=== PATIENT | male | born 1995 | race Asian ===

== ENCOUNTER 2021-09-10 10:03 | Emergency (ER) | payer OTHER ==
--- NOTE | 2021-09-10 10:17 | ED Physician Documentation ---
PD HPI NVD - Stated complaint Stated Complaint: ABD PX - Chief complaint Chief Complaint: Abd Pain - History obtained from History obtained from: Patient - History of Present Illness Timing - onset: How many hours ago (1-2), Today Timing - duration: Hours Timing - details: Abrupt onset, Still present (Abrupt onset this morning of nausea and vomiting with a watery loose stool after eating breakfast this morning. [place] okay last night. No unusual foods.) Associated symptoms: Abdominal pain, Loss of appetite. No: Fever, Near syncope / syncope Contributing factors: No: Sick contact, Bad food, Recent antibiotics, Alcohol use (not recent) Improved by: No: Vomiting Worsened by: Eating Similar symptoms before: Has not had sx before Recently seen: Not recently seen Review of Systems Constitutional: denies: Fever, Chills Nose: denies: Rhinorrhea / runny nose, Congestion Throat: denies: Sore throat Respiratory: denies: Cough GI: reports: Abdominal Pain (mid abdomen to umbiical area.), Nausea, Vomiting (several times since onset several hours ago.), Diarrhea (had one loose to watery stool after onset of the nausea/vomiting.) PD PAST MEDICAL HISTORY - Past Medical History Cardiovascular: None Respiratory: None Endocrine/Autoimmune: None GI: None - Present Medications Home Medications: Ambulatory Orders Medication Instructions Recorded Confirmed Loperamide HCl [Imodium A-D] 2 mg PO Q6H PRN #10 tablet 09/10/21 Ondansetron Odt [Zofran] 4 mg TL Q6H PRN #10 tablet 09/10/21 - Allergies Allergies/Adverse Reactions: Allergies Allergy/AdvReac Type Severity Reaction Status Date / Time No Known Drug Allergies Allergy Verified 09/10/21 10:11 PD ED PE NORMAL - Vitals Vital signs reviewed: Yes - General General: Alert and oriented X 3, Well developed/nourished - HEENT HEENT: Pharynx benign - Neck Neck: Supple, no meningeal sign, No adenopathy - Cardiac Cardiac: RRR, No murmur - Respiratory Respiratory: Clear bilaterally - Abdomen Abdomen: Normal bowel sounds, Soft, Non distended, No organomegaly, Other (tender periumbilical area with mild guarding. No percussion tender. ) - Male Male : Deferred - Rectal Rectal: Deferred - Back Back: No CVA TTP - Derm Derm: Normal color, Warm and dry - Neuro Neuro: Alert and oriented X 3, No motor deficit, Normal speech Results - Vitals Vitals: Vital Signs - 24 hr 09/10/21 09/10/21 09/10/21 10:09 10:29 13:40 Temperature 36.7 C 36.8 C Heart Rate 57 L 61 64 Respiratory 16 18 12 Rate Blood Pressure 143/66 H 124/80 131/54 H O2 Saturation 99 99 100 Oxygen O2 Source Room air - Labs Labs: Laboratory Tests 09/10/21 09/10/21 09/10/21 10:18 10:18 10:29 WBC 5.4 RBC 4.93 Hgb 15.5 Hct 43.8 MCV 88.8 MCH 31.4 H MCHC 35.4 RDW 11.1 L Plt Count 175 MPV 10.5 Neut # (Auto) 3.4 Lymph # (Auto) 1.4 L [place] # (Auto) 0.4 Eos # (Auto) 0.2 Baso # (Auto) 0.1 Absolute Nucleated RBC 0.00 Nucleated RBC % 0.0 Sodium 135 Potassium 3.7 Chloride 99 L Carbon Dioxide 27 Anion Gap 9.0 BUN 20 Creatinine 1.2 Estimated GFR (MDRD) 74 L Glucose 99 Calcium 9.3 Total Bilirubin 1.1 H AST 27 ALT 20 Alkaline Phosphatase 54 Total Protein 7.5 Albumin 4.8 Globulin 2.7 Albumin/Globulin Ratio 1.8 Lipase 32 Urine Color YELLOW Urine Clarity CLEAR Urine pH 7.0 Ur Specific [place] 1.015 Urine Protein NEGATIVE Urine Glucose (UA) NEGATIVE Urine Ketones NEGATIVE Urine Occult Blood NEGATIVE Urine Nitrite NEGATIVE Urine Bilirubin NEGATIVE Urine Urobilinogen 0.2 (NORMAL) Ur Leukocyte Esterase NEGATIVE Ur Microscopic Review NOT INDICATED Urine Culture Comments NOT INDICATED - Rads (name of study) abd CT Radiology: Prelim report reviewed (no acute process, normal appendix. possible mild colon wall inflammation descending. consider colitis. ), See rad report PD MEDICAL DECISION MAKING - ED course Complexity details: reviewed results (normal appendix. possible colon wall thickening would be c/w GE. Feeling better with meds in ER. ), considered differential (consider early appendicitis with N/V and periumbilical tender. Otherwise could be food related, viral GE, colitis, diverticulitis. Does not seem like obstructive nor urinary tract. ), d/w patient Departure - Departure Disposition: 01 Home, Self Care Clinical Impression: Nausea vomiting and diarrhea Abdominal pain Qualifiers: Abdominal location: lower abdomen, unspecified Qualified Code(s): R10.30 - Lower abdominal pain, unspecified Condition: Stable Record reviewed to determine appropriate education?: Yes Instructions: ED Diet Vomiting Diarrhea Follow-Up: [facility] Klein [Provider Group] Prescriptions: Loperamide HCl [Imodium A-D] 2 mg PO Q6H PRN #10 tablet PRN Reason: Diarrhea Ondansetron Odt [Zofran] 4 mg TL Q6H PRN #10 tablet PRN Reason: Nausea / Vomiting Comments: Off work today and possibly tomorrow, you will have to see how you feel. No signs of more significant causes for your symptoms with normal appendix/etc on your CT. There was mild swelling of part of the colon, which would be the effect of things like viral GE, food poisoning, etc. At this point presume a viral enteritis with some irritation of the intestine and stomach. Commonly this will last for a day or 2 and improved. Recheck if not improved well over the next day or 2. Use ondansetron if needed for nausea and Imodium if needed for diarrhea. Tylenol if needed for pains or cramps. Return if consistent pain in the localized area, fevers, repetitive vomiting, bloody stools or other concerns. [facility] and also printed it for you if you wish to go elsewhere. Forms: Activity restrictions Discharge Date/Time: 09/10/21 13:44
[2021-09-10 10:27] LABS: BASOPHILS # (AUTO) 0.1 10^3/uL (0.0-0.1); BASOPHILS % (AUTO) 1.1 %; EOSINOPHILS # (AUTO) 0.2 10^3/uL (0.0-0.7); EOSINOPHILS % (AUTO) 4.4 %; HCT - HEMATOCRIT 43.8 % (42.0-52.0); HGB - HEMOGLOBIN 15.5 g/dL (14.0-18.0); LYMPHOCYTES # (AUTO) 1.4 10^3/uL (1.5-3.5); LYMPHOCYTES % (AUTO) 25.4 %; MEAN CORPUSCULAR HEMOGLOBIN 31.4 pg (27.0-31.0); MEAN CORPUSCULAR HGB CONC 35.4 g/dL (32.0-36.0); MEAN CORPUSCULAR VOLUME 88.8 fL (80.0-94.0); MEAN PLATELET VOLUME 10.5 fL (7.4-11.4); MONOCYTES # (AUTO) 0.4 10^3/uL (0.0-1.0); MONOCYTES % (AUTO) 7.2 %; NEUTROPHILS # (AUTO) 3.4 10^3/uL (1.5-6.6); NEUTROPHILS % (AUTO) 61.7 %; PLT - PLATELET COUNT 175 10^3/uL (130-450); RED BLOOD COUNT 4.93 10^6/uL (4.70-6.10); RED CELL DISTRIBUTION WIDTH 11.1 % (12.0-15.0); WHITE BLOOD COUNT 5.4 x10^3/uL (4.8-10.8)
[2021-09-10 10:36] LABS: ALBUMIN 4.8 g/dL (3.2-5.5); ALBUMIN/GLOBULIN RATIO 1.8 (1.0-2.2); BILIRUBIN,TOTAL 1.1 mg/dL (0.2-1.0); CALCIUM 9.3 mg/dL (8.5-10.3); CREATININE 1.2 mg/dL (0.6-1.2); POTASSIUM 3.7 mmol/L (3.5-5.0); TOTAL PROTEIN 7.5 g/dL (6.7-8.2)
[2021-09-10 10:49] LABS: BILIRUBIN,URINE NEGATIVE (NEGATIVE); CLARITY,URINE CLEAR (CLEAR); GLUCOSE, URINE (UA) NEGATIVE (NEGATIVE); KETONES,URINE (UA) NEGATIVE (NEGATIVE); LEUKOCYTE ESTERASE, URINE NEGATIVE (NEGATIVE); NITRITE,URINE NEGATIVE (NEGATIVE); OCCULT BLOOD,URINE NEGATIVE (NEGATIVE); PROTEIN,URINE NEGATIVE (NEGATIVE); UROBILINOGEN,URINE 0.2 (NORMAL) E.U./dL (NORMAL)
[2021-09-10] MEDS ORDERED: KETOROLAC 30 MG/ML VIAL IVP STA (10:57)
[2021-09-10] MEDS ORDERED: SODIUM CHLORIDE 0.9% 1,000 ML IV STA (10:57)
[2021-09-10] MEDS ORDERED: ONDANSETRON 4 MG/2 ML VIAL IVP STA (10:57)
[2021-09-10] MEDS ORDERED: IOVERSOL 320 100 ML VIAL IVP ONE ×2 (12:00→15:49)
--- NOTE | 2021-09-10 12:59 | CT Report ---
PROCEDURE: Abdomen/Pelvis W INDICATIONS: mid to lower abd pain abrupt this morning CONTRAST: IV CONTRAST: Optiray 320 ml: 100 PO CONTRAST: *NO PO CONTRAST TECHNIQUE: After the administration of IV contrast, 5 mm thick sections acquired from the diaphragms to the symp hysis. 5 mm thick coronal and sagittal reformats were acquired. For radiation dose reduction, the f ollowing was used: automated exposure control, adjustment of mA and/or kV according to patient size. COMPARISON: None. FINDINGS: Image quality: Excellent. ABDOMEN: Lung bases: Lung bases are clear. Heart size is normal. Solid organs: Liver and spleen are normal in size and enhancement. Gallbladder is within normal mercer its. Biliary system is non dilated. Pancreas enhances normally. No adrenal nodules. Kidneys demon strate normal size and enhancement, without hydronephrosis. Peritoneum and bowel: There is no bowel obstruction. No gastric or small bowel wall thickening. Quest ionable wall thickening involving descending colon which may be due to underdistention. Low-grade col itis cannot be excluded. No abscess collection. No free fluid or air. Appendix is visualized and is within normal limits. Nodes and vessels: No retroperitoneal or mesenteric adenopathy by size criteria. Aorta and inferior vena cava are normal in size. Miscellaneous: No ventral hernias. PELVIS: Genitourinary: Bladder wall thickness is normal. Miscellaneous: No inguinal hernias or adenopathy. Bones: No suspicious bony lesions. No vertebral body compression fractures. IMPRESSION: 1. Questionable descending colon wall thickening which may be due to underdistention. Low-grade infec tious or inflammatory colitis cannot be excluded. No abscess collection. No free fluid of free air. N o bowel obstruction. 2. No renal stone or hydronephrosis. Normal-appearing urinary bladder. Reviewed by: Hawk Means MD on 09/10/2021 12:57 PM PDT Approved by: Hawk Means MD on 09/10/2021 12:57 PM PDT Station ID: [id number]
[2021-09-10 13:41] VITALS: BP 131/54
== END 2021-09-10 13:44 | disposition home or self-care (01) ==
LOC: ED 10:03
DX: R11.2 Nausea with vomiting, unspecified (principal); R19.7 Diarrhea, unspecified; R10.30 Lower abdominal pain, unspecified
CPT/HCPCS: 36415; 74177; 80053; 81003; 83690; 85025; 96374; 99282; 99284; Q9967; 81001; 87086